=== PATIENT | female | born 1965 | race Caucasian/White ===

== ENCOUNTER 2023-01-28 06:39 | Day surgery (SDC) | payer MEDICARE, MEDICAID ==
[~2023-01-28] VITALS: Ht 162.6 cm; Wt 96.2 kg
[2023-01-28] MEDS ORDERED: MEPERIDINE 100 MG INJ. 100 MG/ML VIAL ONE (07:25)
[2023-01-28] MEDS ORDERED: MIDAZOLAM HCL 5 MG/5 ML VIAL ONE (07:25)
[2023-01-28] MEDS ORDERED: SIMETHICONE 40 MG/0.6 ML ML ONE (07:25)
[2023-01-28] MEDS ORDERED: fentaNYL CITRATE/PF 100 MCG/2 ML AMP ONE (08:11)
[2023-01-28 09:01] VITALS: O2SAT 99
[2023-01-28 12:57] VITALS: BP_SYST 122; PULSE 64; RESP 16
== END 2023-01-28 10:55 | disposition home or self-care (01) ==
LOC: SDS 06:39 → SMU 06:40 → SDS 10:55
PROVIDERS: ATTEND Student in an Organized Health Care Education/Training Program
DX: K59.09 Other constipation (principal); K63.5 Polyp of colon; K57.30 Diverticulosis of large intestine without perforation or abscess without bleeding; K64.8 Other hemorrhoids; M86.9 Osteomyelitis, unspecified; R14.0 Abdominal distension (gaseous); Z79.82 Long term (current) use of aspirin; Z79.4 Long term (current) use of insulin; Z79.899 Other long term (current) drug therapy
CPT/HCPCS: 45385; 99152; 82962; 88305; 99153; G0378; J2250; J3010; J2175